=== PATIENT | female | born 1955 | race Caucasian/White ===

== ENCOUNTER 2021-08-07 01:31 | Day surgery (SDC) | payer MEDICARE, OTHER, SELFPAY ==
[2021-07-24 11:47] VITALS: BMI 24.5
[2021-08-07 08:26] VITALS: BP 118/65; PULSE 105; RESP 20; TEMP 36.5; O2SAT 100; BMI 24.5
[2021-08-07] MEDS: LACTATED RINGERS 1,000 ML 150 ML IV CONT (08:35)
--- NOTE | 2021-08-07 08:54 | WPDANESEPPF ---
Anes - Initial Pre Proc Eval Procedure: Operation Date: 08/07/21 10:00 Proposed Procedures p Screening Colonoscopy - Israel Ramirez MD Date/Time: 08/07/21 08:54 Surgeon: Israel Ramirez MD Pre Op Diagnosis: neoplasm screening Patient Data Age: 66 Gender: F Height: 1.6 m Weight: 62.9 kg Last Vital Signs Temp 36.5 C 08/07/21 08:26 Pulse 105 H 08/07/21 08:26 Resp 20 08/07/21 08:26 BP 118/65 08/07/21 08:26 Pulse Ox 100 08/07/21 08:26 Allergies Allergy/AdvReac Type Severity Reaction Status Date / Time Penicillins Allergy Rash Verified 07/24/21 11:47 Home Medications Medication Instructions Recorded Confirmed Type Adult Probiotic 1 cap PO DAILY 07/24/21 07/24/21 History cholecalciferol (vitamin D3) 25 mcg PO DAILY 07/24/21 07/24/21 History [Vitamin D3] Patient hx anesthesia problems: none Family hx anesthesia problems: none Results Review: All pre-operative results and documents have been reviewed as part of the pre-operative evaluation. [facility] Social History Social History Smoking status: Never smoker Alcohol intake: current Alcohol use details: rarely Living arrangements: with family Spiritual care concerns: No Anes - Eval Final PreProcedure Day of Procedure 08/07/21 08:54 Patient weight: normal Heart: regular rate and rhythm Lungs: clear to auscultation and normal air movement Airway: Mallampati scale class II Neurological: alert and oriented Last oral intake: >/= 8 hours ASA classification: I Emergent: no Anesthetic plan: proceed Anesthesia type and monitoring: general GIVS and standard monitoring Results Review: All pre-operative results and documents have been reviewed as part of the pre-operative evaluation. Informed Consent: The patient's anesthetic plan and its attendant risks and benefits were discussed with the patient/family/POA. Questions were solicited and answers provided to the satisfaction of the patient/family/POA.
--- NOTE | 2021-08-07 09:31 | WPDGICN ---
Assessment and Plan Assessment and plan (1) Family hx of colon cancer: Code(s): Z80.0 - Family history of malignant neoplasm of digestive organs Status: Acute Assessment and Plan: Patient has a family history of colon cancer in that her sister has had colon cancer screening colonoscopy is recommended now and at 5 year intervals in the future. GI Consult Note Consult date/time: 08/07/21 09:31 HPI: Jennifer Farooq is a 66 year old female Presents for screening colonoscopy. Patient's current weight appetite and bowel movements are normal. She denies abdominal pain. She has had no bleeding. Family history is significant that her sister had colon cancer. Patient reports that her last colonoscopy 5 years ago was unremarkable. She presents today for neoplasia screening. Review of Systems Review of Systems: All systems reviewed & are unremarkable except as noted in HPI and below PMFSH Social History Social History Smoking status: Never smoker Alcohol intake: current Alcohol use details: rarely Living arrangements: with family Spiritual care concerns: No Meds Home Medications and Allergies Home Medications Medication Instructions Recorded Confirmed Type Adult Probiotic 1 cap PO DAILY 07/24/21 07/24/21 History cholecalciferol (vitamin D3) 25 mcg PO DAILY 07/24/21 07/24/21 History [Vitamin D3] Allergies Allergy/AdvReac Type Severity Reaction Status Date / Time Penicillins Allergy Rash Verified 07/24/21 11:47 Vital Signs Vital Signs - 24 hr 08/07/21 08:26 Temperature 97.7 F Pulse Rate 105 H Respiratory Rate 20 Blood Pressure 118/65 Pulse Oximetry 100 Exam Narrative: Physical exam reveals patient to be alert. Vital signs stable. HEENT exam is unremarkable. Patient is anicteric. Lungs are clear to auscultation and percussion. Heart is without murmur or extra sounds. Abdominal exam bowel sounds are present soft nontender with no organomegaly. Digital external rectal exam is normal.
[2021-08-07 10:42] VITALS: BP 100/63; PULSE 86; RESP 16; O2SAT 100
[2021-08-07 10:52] VITALS: BP 110/56; PULSE 90; RESP 20; O2SAT 100
[2021-08-07 11:02] VITALS: BP 111/71; PULSE 80; RESP 20; O2SAT 99
== END 2021-08-07 11:16 | disposition home or self-care (01) ==
PROVIDERS: PCP Physician Assistant Medical; Visit Provider Internal Medicine Gastroenterology
PROC: 0DJD8ZZ Inspection of Lower Intestinal Tract, Via Natural or Artificial Opening Endoscopic (ICD-10-PCS; CPT 45378; principal; 2021-08-07 10:00)
DX: Z12.11 Encounter for screening for malignant neoplasm of colon (principal); Z80.0 Family history of malignant neoplasm of digestive organs; K64.8 Other hemorrhoids
CPT/HCPCS: G0105; J2704; J7120